=== PATIENT | male | born 1945 | race Caucasian/White ===

== ENCOUNTER 2020-11-02 03:38 | Emergency (ER) | payer OTHER ==
[2020-11-02] MEDS ORDERED: Acetaminophen 325 MG Tab PO ONE (04:15)
--- NOTE | 2020-11-02 04:18 | EDM.PDOC ---
ED HPI GENERAL MEDICAL PROBLEM - General Chief Complaint: Fever Stated Complaint: FEVER/CHILLS Time Seen by Provider: 11/02/20 04:03 Source of Information: Reports: Patient, Family History Limitations: Reports: No Limitations - History of Present Illness INITIAL COMMENTS - FREE TEXT/NARRATIVE: Po is a 75-year-old male presenting to the ED for evaluation of fever. Patient reports that yesterday developed fever upwards of 102.6 F. He has had shaking chills. He states that shortly after developing the fever he also had a headache and body aches. 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 He denies any chest pain but does have some mild upper abdominal pain which he feels is gas. He has no nausea or vomiting. He denies any diarrhea or constipation. He denies any urinary symptoms including urgency, frequency, or burning with urination. He has not noticed any rash anywhere. He denies any recent ticks. The patient has not received his COVID-19 vaccine. He has not been around anyone with COVID-19 that he knows. body aches Pain Score (Numeric/FACES): 2 - Related Data Allergies Allergy/AdvReac Type Severity Reaction Status Date / Time No Known Allergies Allergy Verified 11/02/20 03:55 Home Meds: Home Meds Indomethacin [Indocin] 25 mg PO DAILY 04/19/19 [History] Isosorbide Mononitrate [Imdur] 30 mg PO DAILY 04/19/19 [History] Levothyroxine Sodium [Synthroid] 75 mcg PO DAILY 04/19/19 [History] Nitroglycerin [Nitrostat] 0.4 mg SL ASDIRECTED 04/19/19 [History] atorvaSTATin Calcium [Lipitor] 40 mg PO DAILY 04/19/19 [History] Aspirin [Milvia Chewable] 81 mg PO DAILY 11/02/20 [History] Past Medical History HEENT History: Reports: Cataract Cardiovascular History: Reports: High Cholesterol, SC Respiratory History: Reports: SOB Gastrointestinal History: Reports: None Genitourinary History: Reports: None Musculoskeletal History: Reports: Other (See Below) Other Musculoskeletal History: bilateral shoulder pain Neurological History: Reports: None Psychiatric History: Reports: Anxiety, Depression Endocrine/Metabolic History: Reports: Other (See Below) Other Endocrine/Metabolic History: thyroid disease Hematologic History: Reports: None Immunologic History: Reports: None Oncologic (Cancer) History: Reports: None Dermatologic History: Reports: None - Infectious Disease History Infectious Disease History: Reports: Chicken Pox - Past Surgical History Head Surgeries/Procedures: Reports: None HEENT Surgical History: Reports: Cataract Surgery Cardiovascular Surgical History: Reports: Coronary Artery Bypass Social & Family History - Tobacco Use Tobacco Use Status *Q: Never Tobacco User - Caffeine Use Caffeine Use: Reports: None ED ROS GENERAL - Review of Systems Review Of Systems: See Below Constitutional: Reports: Fever, Chills, Malaise HEENT: Reports: No Symptoms Respiratory: Reports: Shortness of Breath (Chronic due to his years of smoking) Cardiovascular: Reports: No Symptoms Endocrine: Reports: No Symptoms GI/Abdominal: Reports: Abdominal Pain (Epigastric). Denies: Constipation, Diarrhea, Nausea, Vomiting : Reports: No Symptoms Musculoskeletal: Reports: Other (Body aches) Skin: Reports: No Symptoms. Denies: Rash, Erythema, Wound Neurological: Reports: Headache Psychiatric: Reports: No Symptoms Hematologic/Lymphatic: Reports: No Symptoms Immunologic: Reports: No Symptoms ED EXAM, GENERAL - Physical Exam Exam: See Below Exam Limited By: No Limitations General Appearance: Alert, No Apparent Distress Eye Exam: Bilateral Eye: EOMI, PERRL Throat/Mouth: Normal Inspection, Normal Oropharynx, Normal Voice, No Airway Compromise Head: Atraumatic, Normocephalic Neck: Normal Inspection, Supple Respiratory/Chest: No Respiratory Distress, Lungs Clear, Normal Breath Sounds Cardiovascular: Normal Peripheral Pulses, Regular Rate, Rhythm, No Murmur Peripheral Pulses: 2+: Radial (L), Radial (R) GI/Abdominal: Normal Bowel Sounds, Soft, Non-Tender. No: Distended, Guarding, Rigid, Rebound Back Exam: Full Range of Motion Extremities: Normal Inspection, Normal Range of Motion, No Pedal Edema Neurological: Alert, Oriented, Normal Cognition, No Motor/Sensory Deficits Psychiatric: Normal Affect, Normal Mood Skin Exam: Warm, Dry, Intact, Normal Color Lymphatic: No Adenopathy Course - Vital Signs Last Recorded V/S: Last Vital Signs Temp 38.1 C 11/02/20 04:34 Pulse 85 11/02/20 04:34 Resp 20 11/02/20 04:34 BP 149/72 H 11/02/20 04:34 Pulse Ox 97 11/02/20 04:34 - Orders/Labs/Meds Orders: Active Orders 24 hr Category Date Time Status COVID-19/FLU A+B/RSV [MOLEC] Stat Lab 11/02/20 04:04 Ordered Isolation [COMM] Stat Oth 11/02/20 04:04 Ordered Labs: Laboratory Tests 11/02/20 11/02/20 11/02/20 Range/Units 04:15 04:15 04:41 WBC 6.6 (4.5-11.0) K/uL RBC 4.81 (4.30-5.90) M/uL Hgb 13.6 (12.0-15.0) g/dL Hct 42.0 (40.0-54.0) % MCV 87 (80-98) fL MCH 28 (27-31) pg MCHC 32 (32-36) % Plt Count 193 (150-400) K/uL Neut % (Auto) 86 H (36-66) % Lymph % (Auto) 7 L (24-44) % [place] % (Auto) 7 H (2-6) % Eos % (Auto) 0 L (2-4) % Baso % (Auto) 1 (0-1) % Sodium 138 L (140-148) mmol/L Potassium 5.0 (3.6-5.2) mmol/L Chloride 101 (100-108) mmol/L Carbon Dioxide 24 (21-32) mmol/L Anion Gap 18.0 H (5.0-14.0) mmol/L BUN 20 H (7-18) mg/dL Creatinine 1.6 H (0.8-1.3) mg/dL Est Cr Clr Drug Dosing 45.13 mL/min Estimated GFR (MDRD) 43 L (>60) Glucose 160 H (74-106) mg/dL Calcium 8.8 (8.5-10.1) mg/dL Total Bilirubin 1.6 H (0.2-1.0) mg/dL AST 35 (15-37) U/L ALT 47 (12-78) U/L Alkaline Phosphatase 102 (46-116) U/L Total Protein 7.2 (6.4-8.2) g/dL Albumin 3.8 (3.4-5.0) g/dL Globulin 3.4 (2.3-3.5) g/dL Albumin/Globulin Ratio 1.1 L (1.2-2.2) Urine Color Yellow (YELLOW) Urine Appearance Cloudy A (CLEAR) Urine pH 5.5 (5.0-8.0) Ur Specific [place] >= 1.030 (1.008-1.030) Urine Protein 30 H (NEGATIVE) mg/dL Urine Glucose (UA) Negative (NEGATIVE) mg/dL Urine Ketones 40 H (NEGATIVE) mg/dL Urine Occult Blood Trace-lysed H (NEGATIVE) Urine Nitrite Negative (NEGATIVE) Urine Bilirubin Small H (NEGATIVE) Urine Urobilinogen 1.0 (0.2-1.0) EU/dL Ur Leukocyte Esterase Small H (NEGATIVE) Urine RBC 0-5 (0-5) Urine WBC 20-30 H (0-5) Ur Epithelial Cells Few Amorphous Sediment Few Urine Bacteria Rare Urine Mucus Many Meds: Medications Discontinued Medications Generic Name Dose Route Start Last Admin Trade Name Freq PRN Reason Stop Dose Admin Acetaminophen 650 mg 11/02/20 04:15 11/02/20 04:30 Acetaminophen 325 Mg Tab PO 11/02/20 04:16 650 mg NOW ONE Administration - Re-Assessments/Exams Free Text/Narrative Re-Assessment/Exam: 11/02/20 04:59 I reviewed the patient's labs showing a normal CBC with a leukocyte count of 6.6. Patient has an elevated creatinine at 1.6 and a BUN of 20. Urinalysis significant with positive leukocyte esterase and 30-50 WBCs consistent with an acute urinary tract infection. It is likely the cause of his fever and chills. Plan is to put him on antibiotics with cephalexin 500 mg twice daily for 7 days. Urine culture is also been ordered. 11/02/20 05:02 Covid and influenza tests are negative. Departure - Departure Time of Disposition: 05:04 Disposition: Home, Self-Care 01 Clinical Impression: Urinary tract infection Qualifiers: Urinary tract infection type: acute cystitis Hematuria presence: without hematuria Qualified Code(s): N30.00 - Acute cystitis without hematuria - Discharge Information Instructions: Urinary Tract Infection, Adult, [id number] Referrals: PCP,None [Primary Care Provider] - Forms: ED Department Discharge Care Plan Goals: It appears that your fever and chills are due to a urinary tract infection. We are going to start you on an antibiotic called cephalexin which you are going to take twice daily for the next 7 days. I did order a urine culture so if somebody contact you in several days to change the antibiotic is because the organism that is growing out in your urine was resistant to this antibiotic. You may continue to take Tylenol or ibuprofen for your fever. I encourage you to drink plenty of fluids to keep producing urine. In addition, you are a little dehydrated so the extra fluid will help with depleting your fluids. Sepsis Event Note (ED) - Focused Exam Vital Signs: Vital Signs Temp Temp Pulse Resp BP Pulse Ox 11/02/20 04:34 38.1 C 85 20 149/72 H 97 11/02/20 04:33 38.1 C 85 20 149/72 H 97 11/02/20 04:30 38.1 C - Problem List & Annotations (1) Urinary tract infection SNOMED Code(s): 17478843 Code(s): N39.0 - URINARY TRACT INFECTION, SITE NOT SPECIFIED Status: Acute Priority: Medium Current Visit: Yes Qualifiers: Urinary tract infection type: acute cystitis Hematuria presence: without hematuria Qualified Code(s): N30.00 - Acute cystitis without hematuria - Problem List Review Problem List Initiated/Reviewed/Updated: Yes - My Orders Last 24 Hours: My Active Orders 11/02/20 04:04 COVID-19/FLU A+B/RSV [MOLEC] Stat Isolation [COMM] Stat - Assessment/Plan Last 24 Hours: My Active Orders 11/02/20 04:04 COVID-19/FLU A+B/RSV [MOLEC] Stat Isolation [COMM] Stat
[2020-11-02 04:55] LABS: CORONAVIRUS COVID-19 NAA NEGATIVE (NEGATIVE)
== END 2020-11-02 05:23 | disposition home or self-care (01) ==
LOC: JP.ED 03:38
DX: N30.00 Acute cystitis without hematuria (principal); E78.00 Pure hypercholesterolemia, unspecified; I25.2 Old myocardial infarction; E07.9 Disorder of thyroid, unspecified; Z79.899 Other long term (current) drug therapy; Z20.822 Contact with and (suspected) exposure to COVID-19
CPT/HCPCS: 0241U; 36415; 80053; 81001; 85025; 87086; 99284; A9270; 99283

== ENCOUNTER 2022-03-10 14:20 | Emergency (ER) | payer OTHER | END 2022-03-10 15:43 | disposition home or self-care (01) | LOC: JP.ED 14:20 | DX: U07.1 COVID-19 (principal); E78.00 Pure hypercholesterolemia, unspecified; I25.2 Old myocardial infarction; Z79.899 Other long term (current) drug therapy; Z79.82 Long term (current) use of aspirin | CPT/HCPCS: 99283 ==